=== PATIENT | female | born 1950 | race Caucasian/White ===

== ENCOUNTER 2022-06-10 01:13 | Emergency (ER) | payer MEDICARE, BC ==
[~2022-06-10] VITALS: Ht 165.1 cm; Wt 70.3 kg
[2022-06-10] MEDS ORDERED: CLON0.1T PO ×2 (01:42→01:53)
[2022-06-10] MEDS ORDERED: AZIL40TA PO (01:42)
[2022-06-10] MEDS ORDERED: ROSU10TA2 PO (01:42)
[2022-06-10 02:35] LABS: *BILIRUBIN,URIN NEGATIVE (NEGATIVE); *CLARITY,URINE CLEAR (CLEAR); *COLOR,URINE YELLOW (YELLOW); *KETONES,URINE NEGATIVE (NEGATIVE); *UROBILINOGEN,URINE 0.2 E.U./dl (NORMAL); LEUKOCYTE ESTERASE ,URINE TRACE (NEGATIVE); NITRITE, URINE NEGATIVE (NEGATIVE); UGLUCOSE NEGATIVE (NEGATIVE)
[2022-06-10 02:36] LABS: *BLOOD, URINE TRACE (NEGATIVE)
[2022-06-10 02:46] LABS: BACTERIA,URINE NONE SEEN /HPF (NONE SEEN); RBC,URINE 0-3 /HPF (0-3); SQUAMOUS EPITHELIAL CELL,UR FEW /HPF (NONE SEEN); WBC,URINE 0-3 /HPF (0-3)
[2022-06-10 02:54] VITALS: BP 170/64
== END 2022-06-10 02:55 | disposition home or self-care (01) ==
LOC: ER 01:23
DX: I10 Essential (primary) hypertension (principal); R00.1 Bradycardia, unspecified; I45.10 Unspecified right bundle-branch block
CPT/HCPCS: 93005; A4663

== ENCOUNTER 2022-06-25 23:30 | Emergency (ER) | payer MEDICARE, BC ==
[~2022-06-25] VITALS: Ht 165.1 cm; Wt 72.6 kg
[~2022-06-25 23:30] MED LIST: AZIL40TA PO; CLON0.1T PO; ROSU10TA2 PO
--- NOTE | 2022-06-26 00:01 | NUR ---
pt in room 5a c/o of numbness to right side of face started one hour travel pta.
--- NOTE | 2022-06-26 00:05 | NUR ---
Patient is a/ox4, able to walk with steady gait
--- NOTE | 2022-06-26 00:15 | NUR ---
Dr. Harper at bedside for MSE.
--- NOTE | 2022-06-26 00:25 | NUR ---
Activated [facility] as requested by Dr Harper.
--- NOTE | 2022-06-26 00:29 | NUR ---
all ambulace companies that are available for transport were called all of them except [facility] said they are unavailable to transport the pt to [facility] for a cat scan. [facility] says they can be here in 90 minutes. this was relayed to Dr. Harper.
--- NOTE | 2022-06-26 00:30 | NUR ---
Called [facility] ambulance to transport patient to [place] for CT scan. ETA is 90mins.
--- NOTE | 2022-06-26 00:40 | NUR ---
Patient on neuro consult with Dr Joseph Silvestre
--- NOTE | 2022-06-26 00:46 | NUR ---
Dr Harper speaking with Dr Silvestre
[2022-06-26 00:58] LABS: HEMATOCRIT 43.7 % (31.2-41.9); MEAN CORPUSCULAR HEMOGLOBIN 31.2 uug (24.7-32.8); MEAN CORPUSCULAR VOLUME 93.7 fL (75.5-95.3); PLATELET COUNT (AUTO) 182 K/uL (179-408)
[2022-06-26 01:16] LABS: CARBON DIOXIDE 28 mmol/L (21-32); CHLORIDE 104 mmol/L (98-107); CREATININE 1.1 mg/dL (0.6-1.3); GLUCOSE 110 mg/dL (74-106); POTASSIUM 3.7 mmol/L (3.5-5.1); UREA NITROGEN, BLOOD 15 mg/dL (7-18)
[2022-06-26 01:17] LABS: *AMPHETAMINE, URINE NEGATIVE (NEGATIVE); *CANNABINOID, URINE NEGATIVE (NEGATIVE); *COCCAINE, URINE NEGATIVE (NEGATIVE); *OPIATE, URINE NEGATIVE (NEGATIVE); *PHENCYCLIDINE SCREEN,URINE NEGATIVE (NEGATIVE)
[2022-06-26 01:25] LABS: ALANINE AMINOTRANSFERASE 30 U/L (14-59); ALKALINE PHOSPHATASE 90 U/L (50-136); ASPARTATE AMINOTRANSFERASE 24 U/L (15-37); BILIRUBIN,DIRECT 0.2 mg/dL (0.0-0.2); BILIRUBIN,TOTAL 0.9 mg/dL (0.2-1.0); TOTAL PROTEIN, SERUM 7.8 g/dL (6.4-8.2)
[2022-06-26 01:32] LABS: ETHANOL < 3 MG/DL (0-0)
--- NOTE | 2022-06-26 01:52 | NUR ---
[facility] unit #300 ([place]) at bedside for transportation to [place] for CT scan as this [facility] CT machine is down
--- NOTE | 2022-06-26 02:44 | NUR ---
[facility] unit #300 left without taking the patient to [place] for CT. Was told by [facility] they cannot take the patient with SBP >150
--- NOTE | 2022-06-26 03:00 | NUR ---
Called [facility] ambulance for transportation to [place]
[2022-06-26] MEDS ORDERED: hydrALAZINE HCL 20 MG/1 ML VIAL ONE (03:09)
[2022-06-26] MEDS ORDERED: hydrALAZINE HCL 20 MG/1 ML VIAL IV ONE (03:15)
--- NOTE | 2022-06-26 03:56 | NUR ---
[facility] unit #335 at bedside for patient transportation to [place] for CT
--- NOTE | 2022-06-26 04:02 | NUR ---
Patient taken to [facility] [place] for CT via [facility] ambulance
--- NOTE | 2022-06-26 04:33 | NUR ---
Patient is back from CT
--- NOTE | 2022-06-26 05:53 | NUR ---
Patient discharged to home in stable condition. Written and verbal after care instructions given. Patient verbalizes understanding of instructions. Stressed follow up or return to ER for worsening s/s. Patient is a/ox4, NAD noted. Patient is able to walk with steady gait
[2022-06-26 05:56] VITALS: BP 143/70
== END 2022-06-26 05:56 | disposition home or self-care (01) ==
LOC: ER 23:34
DX: R20.2 Paresthesia of skin (principal); I10 Essential (primary) hypertension; I45.10 Unspecified right bundle-branch block; Z79.899 Other long term (current) drug therapy; E78.5 Hyperlipidemia, unspecified
CPT/HCPCS: 80076; 80048; 85025; 85730; 84484; 36415; 93005; 71045; 70450; 99285; 96374; 80320; 80307; J0360; A4663; G0480